=== PATIENT | male | born 1975 | race Caucasian/White ===

== ENCOUNTER 2024-01-12 17:50 | Emergency (ER) | payer OTHER, SELFPAY ==
[2024-01-12 17:57] VITALS: BP 150/100; PULSE 111; TEMP 36.5; O2SAT 94; BMI 39.9
--- NOTE | 2024-01-12 21:26 | ED_ITS ---
HPI HPI - Back Pain/Injury General Chief Complaint: Back Pain/Injury Stated Complaint: BACK PAIN Time Seen by Provider: 01/12/24 18:05 Source: patient Mode of arrival: walk-in Limitations: no limitations History of Present Illness HPI Narrative: patient presents complaining of lower back pain. States he fell a couple of days ago and struck the top of his head on the door facing and felt a crack in his neck and injured his back. No weakness of his extremities but when he raises his left leg he experiences pain of his lower back. No complaint of chest pain. No numbness of his extremities. MD elicited complaint: Reports back pain and fall Related Data Home Medications ?Medication ?Instructions ?Recorded ?Confirmed amitriptyline 25 mg tablet 25 mg PO DAILY 01/12/24 01/12/24 atorvastatin 20 mg tablet 20 mg PO DAILY 01/12/24 01/12/24 dapagliflozin propanediol 10 mg 10 mg PO DAILY 01/12/24 01/12/24 tablet (Farxiga) dulaglutide 0.75 mg/0.5 mL mg subcut 01/12/24 subcutaneous pen injector ([facility]) gabapentin 300 mg capsule 300 mg PO Q8H 01/12/24 01/12/24 hydrochlorothiazide 25 mg tablet 25 mg PO DAILY 01/12/24 01/12/24 lisinopril 10 mg tablet 10 mg PO DAILY 01/12/24 01/12/24 olanzapine 10 mg tablet 10 mg PO DAILY 01/12/24 01/12/24 pantoprazole 40 mg tablet,delayed 40 mg PO DAILY 01/12/24 01/12/24 release sertraline 50 mg tablet 50 mg PO AC 01/12/24 01/12/24 Allergies Allergy/AdvReac Type Severity Reaction Status Date / Time diphenhydramine Allergy Mild Palpitation Verified 01/12/24 18:05 [From Benadryl] s fluoxetine [From Prozac] AdvReac Intermediate Agitated Verified 01/12/24 18:05 Opioid HPI Opioid Management Most Recent Opioid Data: 2 No Data to Display Review of Systems 2 ROS0 Status of ROS 10 or more systems reviewed and unremark able except as noted in history and below Exam Constitutional Vital Signs, click to edit/add: Last Vital Signs Temp 97.7 F 01/12/24 17:57 Pulse 70 01/13/24 00:45 Resp 18 01/13/24 00:45 BP 144/79 H 01/13/24 00:45 Pulse Ox 98 01/13/24 00:45 O2 Del Method Room Air 01/13/24 00:45 Common normals: no apparent distress, oriented x3, no limitations, healthy appearing, alert and well nourished [facility] Common normals: normocephalic and head/scalp atraumatic Eye Common normals: EOMs intact bilaterally and conjunctivae normal Neck & C-Spine Common normals: full ROM Respiratory Common normals: normal respiratory effort, no retractions, no use of accessory muscles and clear to auscultation bilaterally Cardio Common normals: regular rate, regular rhythm, S1 normal heart sound and S2 normal heart sound Back & Pelvis Back image (male): 2 1. tender Extremity Common normals: normal to inspection and full ROM Neuro Common normals: oriented x3, CN's II-XII intact bilaterally, moves all extremities and no focal motor deficits Psych Appearance: grossly normal Course Vital Signs Vital signs: Vital Signs Temperature 97.7 F 01/12/24 17:57 Pulse Rate 111 H 01/12/24 17:57 Respiratory Rate 20 01/12/24 17:57 Blood Pressure 150/100 H 01/12/24 17:57 Pulse Oximetry 94 L 01/12/24 17:57 Oxygen Delivery Method Room Air 01/12/24 17:57 Temperature 97.7 F 01/12/24 17:57 Pulse Rate 70 01/13/24 00:45 Respiratory Rate 18 01/13/24 00:45 Blood Pressure 144/79 H 01/13/24 00:45 Pulse Oximetry 98 01/13/24 00:45 Oxygen Delivery Method Room Air 01/13/24 00:45 MDM - Back Pain/Injury MDM Narrative Medical decision making narrative: patient presents a couple of days after loosing his balance and striking the top of his head. No LOC. did feel a pop in his neck. no extremity numbness or weakness but complains of lower back pain. Has tenderness of his left lumbar para vertebral muscles. CT without acute findings. No fractures and CT brain without acute findings. Patient medicated in the department and his pain has eased up some. Discharged home with a prescription for Norflex Lab Data Labs: Lab Results 01/12/24 Range/Units 21:45 WBC 12.7 H (4.0-11.0) 10^3/uL RBC 5.49 (4.70-6.10) 10^6/uL Hgb 15.9 (14.0-18.0) g/dL Hct 48.9 (42.0-54.0) % MCV 89.1 (80.0-94.0) fL MCH 29.0 (25.9-34.0) pg MCHC 32.5 (29.9-35.2) g/dL RDW 15.1 H (11.0-15.0) % Plt Count 271 (150-450) 10^3/uL MPV 12.1 (9.5-13.5) fL Neut % (Auto) 61.4 (43.0-75.0) % Lymph % (Auto) 28.5 (20.5-60.0) % [place] % (Auto) 6.4 (1.7-12.0) % Eos % (Auto) 2.4 (0.9-7.0) % Baso % (Auto) 1.0 (0.2-2.0) % Neut # (Auto) 7.8 H (1.4-6.5) 10^3/uL Lymph # (Auto) 3.6 (1.2-3.8) 10^3/uL [place] # (Auto) 0.8 (0.3-0.8) 10^3/uL Eos # (Auto) 0.3 (0.0-0.7) 10^3/uL Baso # (Auto) 0.1 (0.0-0.1) 10^3/uL Abs Immat Gran (auto) 0.04 H (0.00-0.03) 10^3/uL Imm/Tot Granulo (auto) 0.3 (0.0-0.5) % Sodium 137 (136-145) mmol/L Potassium 3.1 L (3.5-5.1) mmol/L Chloride 98 (98-107) mmol/L Carbon Dioxide 29.7 (21.0-32.0) mmol/L Anion Gap 12.4 BUN 12.0 (7.0-18.0) mg/dL Creatinine 1.37 H (0.70-1.30) mg/dL Est GFR ( Amer) >60 (>=60) Est GFR (Non-Af Amer) 56 L (>=60) BUN/Creatinine Ratio 8.8 Glucose 187 H (74-106) mg/dL Calcium 8.7 (8.5-10.1) mg/dL Discharge Plan Discharge Stand Alone Forms: Portal Instructions Chief Complaint: Back Pain/Injury Clinical Impression: Strain of lumbar region Patient Disposition: Home, Self-Care Mode of Transportation: Private Vehicle Prescriptions / Home Meds: No Action amitriptyline 25 mg tablet 25 mg PO DAILY atorvastatin 20 mg tablet 20 mg PO DAILY dapagliflozin propanediol [Farxiga] 10 mg tablet 10 mg PO DAILY gabapentin 300 mg capsule 300 mg PO Q8H Trulicity 0.75 mg/0.5 mL pen injector SUBCUT hydrochlorothiazide 25 mg tablet 25 mg PO DAILY lisinopril 10 mg tablet 10 mg PO DAILY olanzapine 10 mg tablet 10 mg PO DAILY pantoprazole 40 mg tablet,delayed release (DR/EC) 40 mg PO DAILY sertraline 50 mg tablet 50 mg PO AC Print Language: Czech Instructions: Muscle Strain (ED) Additional Instructions: follow up with your doctor next week for recheck Referrals: Physician,Non-Staff, MD [Primary Care Provider] - 1 week Discharge Date/Time: 01/13/24 00:45
--- NOTE | 2024-01-12 21:30 | CT_ITS ---
[address] [address] Patient Name: ERIS DOUGLASS MRN: [id number] date: 1975 Sex: M Assigned Patient Location: Current Patient Location: Accession/Order Number: [id number] Exam Date: 01/12/2024 21:43 Report Date: 01/13/2024 01:20 At the request of: KRISTOFER ESPINAL Procedure: CT cervical spine wo con CT CERVICAL SPINE WITHOUT : 01/12/2024 9:43 PM EDT HISTORY: Neck pain. TECHNIQUE: Thin section axial CT images were obtained from the foramen magnum to the T1 vertebral body. Thin section sagittal and coronal reconstructed images were performed from the axial data set. Dose reduction techniques were achieved by using automated exposure control and/or adjustment of mA and/or kV according to patient size and/or use of iterative reconstruction technique. CONTRAST: None. COMPARISON: None. FINDINGS: There is no fracture or vertebral body height loss. There is no destructive osseous lesion. Normal anatomic alignment is maintained. There is no spondylolisthesis. There is no significant degenerative change. Osseous mineralization is within normal limits. The paraspinal soft tissues are unremarkable. There is no prevertebral soft tissue swelling. The C2-3, C3-4 and C4-5 disc levels and joint spaces are normal with no central canal or neural foraminal narrowing. No disc bulge or herniation. At C5-6 there is mild degenerative disc height loss. There is disc osteophyte bulging and endplate spondylosis. Bilateral uncinate process hypertrophy. This results in at least mild to moderate central canal narrowing with moderate to severe bilateral neural foraminal stenosis, left greater than right. At C6-7, there is moderate to severe degenerative disc height loss with disc osteophyte bulging and bilateral uncinate process hypertrophy and degeneration causing moderate canal stenosis with moderate right and mild left neural foraminal narrowing. The C7-T1 level is normal without canal or neural foraminal stenosis. There is some mild endplate spondylosis and loss of disc height at T1 to but no central canal or neural foraminal narrowing. The facet joints throughout the cervical and upper thoracic spine are well preserved. Normal bone mineralization. Minimal inclusion of lung apices is unremarkable. Thyroid tissue is normal. CT/CT cervical spine wo con IMPRESSION: 1. No fracture or malalignment. 2. C5-6 and C6-7 degenerative disc disease and endplate spondylosis with bilateral uncovertebral joint degeneration resulting in central canal or neural foraminal stenosis at both levels. See details above. Electronically authenticated by: ADY PLATA Date: 01/13/2024 01:20
--- NOTE | 2024-01-12 21:30 | CT_ITS ---
The [address] [address] Patient Name: ERIS DOUGLASS MRN: [id number] date: 1975 Sex: M Assigned Patient Location: ER Current Patient Location: Accession/Order Number: [id number] Exam Date: 01/12/2024 21:43 Report Date: 01/12/2024 22:22 At the request of: KRISTOFER ESPINAL Procedure: CT lumbar spine wo con EXAM: CT lumbar spine wo con HISTORY: The patient is a 48-year-old male, injury COMPARISON: None. TECHNIQUE: CT images were obtained through the lumbar spine without intravenous contrast and reformatted in 2 dimensions. Dose reduction techniques were achieved by using automated exposure control and/or adjustment of mA and/or kV according to patient size and/or use of iterative reconstruction technique. FINDINGS: The axial images demonstrate no fractures or cortical discontinuities throughout the lumbar spine. The sacroiliac joints are maintained. The coronal and sagittal reformatted images demonstrate no fractures or loss of vertebral body height throughout the lumbar spine. There is moderate narrowing of the L3-L4 disc with slight retrolisthesis of L3 on L4. The width and alignment of the other lumbar discs are maintained. 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 These do not have the appearance of acute fractures. The soft tissue images are technically limited. CT/CT lumbar spine wo con IMPRESSION: 1. No fractures or loss of vertebral body height throughout the lumbar spine. 2. Degenerative disc disease at the L3-L4 level. Electronically authenticated by: GLEN OCONNELL Date: 01/12/2024 22:22
--- NOTE | 2024-01-12 21:30 | CT_ITS ---
The [address] [address] Patient Name: ERIS DOUGLASS MRN: [id number] date: 1975 Sex: M Assigned Patient Location: ER Current Patient Location: ER Accession/Order Number: [id number] Exam Date: 01/12/2024 21:43 Report Date: 01/12/2024 22:05 At the request of: KRISTOFER ESPINAL Procedure: CT head/brain wo con EXAM: CT head/brain wo con CLINICAL INDICATION: injury TECHNIQUE: Unenhanced computerized tomography of the head was performed. Automated dose reduction technique was employed. COMPARISON: None. FINDINGS: The ventricles are normal in size, configuration, and position for age. There is no intra- or extra-axial mass, hemorrhage, or fluid collection. No areas of abnormal mass effect or attenuation are noted. Visualized paranasal sinuses are free of mucosal disease. No depressed calvarial fracture. CT/CT head/brain wo con IMPRESSION: No acute intracranial abnormality noted. Electronically authenticated by: YURIY SR Date: 01/12/2024 22:05
[2024-01-12 21:49] LABS: Basophils Absolute Auto 0.1 10^3/uL (0.0-0.1); Eosinophils Absolute Auto 0.3 10^3/uL (0.0-0.7); Eosinophils Percent Auto 2.4 % (0.9-7.0); Hematocrit 48.9 % (42.0-54.0); Hemoglobin 15.9 g/dL (14.0-18.0); Immature Granulocytes Abs Auto 0.04 10^3/uL (0.00-0.03); Immature Granulocytes Pct Auto 0.3 % (0.0-0.5); Lymphocytes Absolute Auto 3.6 10^3/uL (1.2-3.8); Lymphocytes Percent Auto 28.5 % (20.5-60.0); Mean Corpuscular HGB Conc 32.5 g/dL (29.9-35.2); Mean Corpuscular Volume 89.1 fL (80.0-94.0); Mean Platelet Volume 12.1 fL (9.5-13.5); Monocytes Absolute Auto 0.8 10^3/uL (0.3-0.8); Monocytes Percent Auto 6.4 % (1.7-12.0); Neutrophils Absolute Auto 7.8 10^3/uL (1.4-6.5); Neutrophils Percent Auto 61.4 % (43.0-75.0); Platelet Count 271 10^3/uL (150-450); Red Blood Count 5.49 10^6/uL (4.70-6.10); Red Cell Distribution Width 15.1 % (11.0-15.0); White Blood Count 12.7 10^3/uL (4.0-11.0)
[2024-01-12 22:00] LABS: Anion Gap 12.4; BUN Creatinine Ratio 8.8; Calcium 8.7 mg/dL (8.5-10.1); Carbon Dioxide 29.7 mmol/L (21.0-32.0); Chloride 98 mmol/L (98-107); Estimated GFR (African America >60 (>=60); Estimated GFR (Non-African Ame 56 (>=60); Glucose 187 mg/dL (74-106); Potassium 3.1 mmol/L (3.5-5.1); Sodium 137 mmol/L (136-145)
[2024-01-12] MEDS: MAGNESIUM SULFATE IN WATER 2 GM/50 ML PREMIX IV (22:11)
[2024-01-12] MEDS: METHYLPREDNISOLONE SOD SUCC PF 125 MG/2 ML VIAL IVP (22:12)
[2024-01-12] MEDS: ORPHENADRINE 60 MG/ 2 ML VIAL IV (22:12)
[2024-01-13] MEDS: ORPHENADRINE CITRATE 100 MG TABLET.ER PO (00:42)
[2024-01-13 00:45] VITALS: BP 144/79; PULSE 70; O2SAT 98
== END 2024-01-13 00:45 | disposition home or self-care (01) ==
PROVIDERS: Emergency Provider Internal Medicine
DX: S39.012A Strain of muscle, fascia and tendon of lower back, initial encounter (principal); W19.XXXA Unspecified fall, initial encounter
CPT/HCPCS: 36415; 70450; 72125; 72131; 80048; 85025; 96365; 96375; 99284; J2360; J2919; J3475